=== PATIENT | female | born 2000 | race Caucasian/White ===

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

== ENCOUNTER 2022-04-10 06:47 | Emergency (ER) | payer OTHER ==
[~2022-04-10] VITALS: Ht 162.6 cm; Wt 77.0 kg
[2022-04-10] MEDS ORDERED: AUROVELA (07:11)
[2022-04-10 07:15] VITALS: BP 144/81
[2022-04-10 07:30] VITALS: BP 135/83
[2022-04-10 07:45] VITALS: BP 150/81
[2022-04-10 08:00] VITALS: BP 121/71
[2022-04-10 08:15] VITALS: BP 120/72
[2022-04-10] MEDS ORDERED: ZPAK PO (08:29)
[2022-04-10] MEDS ORDERED: DOXY-CAPS100 MG PO (08:29)
[2022-04-10] MEDS ORDERED: ZOFRAN4 MG/TAB PO (08:29)
[2022-04-10] MEDS ORDERED: DIFLUCAN150 MG PO (08:29)
[2022-04-10 08:36] VITALS: BP 120/72
== END 2022-04-10 09:06 | disposition home or self-care (01) | DRG 153 ==
LOC: ED 06:47
DX: J02.9 Acute pharyngitis, unspecified (principal); Z20.2 Contact with and (suspected) exposure to infections with a predominantly sexual mode of transmission